=== PATIENT | female | born 1980 | race Caucasian/White ===

== ENCOUNTER 2020-12-04 17:06 | Emergency (ER) | payer SELFPAY ==
[2020-12-05 07:53] LABS: SARS-CoV-2 PCR by NAA DETECTED (NotDetected)
== END 2020-12-04 18:10 | disposition home or self-care (01) ==
LOC: EDSEX 17:06 → MADERS 17:06
DX: U07.1 COVID-19 (principal); F17.210 Nicotine dependence, cigarettes, uncomplicated
CPT/HCPCS: 99284; U0003; U0005